=== PATIENT | male | born 1960 | race Caucasian/White ===

== ENCOUNTER 2018-10-21 12:54 | Emergency (ER) | payer OTHER | END 2018-10-21 15:53 | disposition home or self-care (01) | LOC: FTE 12:54 | DX: T75.4XXA Electrocution, initial encounter (principal); M70.21 Olecranon bursitis, right elbow; Y93.89 Activity, other specified | CPT/HCPCS: 73080; 73080-RT; 73110-RT; 93005; 99284-25 ==